=== PATIENT | female | born 1995 | race Caucasian/White ===

== ENCOUNTER 2018-07-17 17:54 | Outpatient (CLI) | payer MEDICAID ==
[~2018-07-17] VITALS: Ht 149.9 cm; Wt 82.8 kg
[2018-07-17] MEDS ORDERED: PREN-93 PO ×2 (18:02→19:37)
[2018-07-17 18:03] VITALS: BP 114/63; PULSE 103; RESP 18; Ht 149.9 cm; Wt 82.8 kg
--- NOTE | 2018-07-17 19:47 | PN ---
Triage Information Date/Time Jul 17, 2018 Reason for visit: DFM Weeks of Gestation 33w 2d /Para 3/2 Diabetes: none Hypertention: none Additional information PMHx: none. PSHx: x 1 for twins. POBHx: x 1. x 1 for twins; twin A , according to pt, by a mistake in the NICU(not our NICU) when a vessel was punctured upon catheter placement. NKDA Objective Vital Signs Date Temp Pulse Resp B/P (MAP) Pulse Ox O2 O2 Flow FiO2 Time Delivery Rate 07/17/18 98.3 103 18 114/63 Room Air 18:03 (80) Heart Rate: 120's Heart Rate Comments Accels to 150 bpm. No decels. Contractions: None Exam Deferred Results/Medications Imaging Results BPP 8/8 with an AKIRA of 10.5 cm. BREECH. Disposition: Discharge Assessment/Plan A: IUP at 33w 2d. Decreased FM. P: Pt now feeling the baby move and the BPP and NST are normal so the pt is ready for d/c. kick counts reviewed. ABBIE REYNA MD Jul 17, 2018 19:47
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
== END 2018-07-17 19:45 | disposition home or self-care (01) ==
LOC: OBT 17:54 → L-D 17:56 → OBT 19:45
PROVIDERS: ATTEND Obstetrics & Gynecology
DX: O36.8130 Decreased fetal movements, third trimester, not applicable or unspecified (principal); Z3A.33 33 weeks gestation of pregnancy
CPT/HCPCS: 76818; G0463

== ENCOUNTER 2018-08-24 01:45 | Inpatient (IN) | payer MEDICAID ==
[~2018-08-24] VITALS: Ht 149.9 cm; Wt 84.5 kg
[~2018-08-24 01:45] MED LIST: PREN-93 PO
[2018-08-24 02:24] VITALS: Ht 149.9 cm; Wt 84.5 kg
[2018-08-24 02:25] VITALS: BP 120/68; PULSE 106; RESP 19
[2018-08-24] MEDS ORDERED: METHYLERGONOVINE 0.2 MG INJ IM PRN ×2 (04:00→21:00)
[2018-08-24] MEDS ORDERED: CARBOPROST 250 MCG INJ IM PRN ×2 (04:00→21:00)
[2018-08-24] MEDS ORDERED: MISOPROSTOL 200 MCG TAB PR PRN ×2 (04:00→21:00)
[2018-08-24] MEDS ORDERED: CEFAZOLIN 2 GM/50 ML (PMX) 50 ML IVPB SCH (04:00)
[2018-08-24] MEDS ORDERED: OXYTOCIN 30 UNITS/LR 500 ML IV PRN ×2 (04:00→21:00)
[2018-08-24] MEDS ORDERED: OXYTOCIN 30 UNITS/LR 500 ML IV SCH ×2 (04:00→20:44)
[2018-08-24] MEDS: LACTATED RINGER'S 1,000 ML IV SCH ×3 (04:38→14:12)
[2018-08-24] MEDS ORDERED: ONDANSETRON 4 MG INJ IV STA ×2 (08:20→15:33)
[2018-08-24] MEDS ORDERED: FAMOTIDINE 20 MG INJ IV ONE ×2 (08:30→16:00)
[2018-08-24] MEDS ORDERED: METOCLOPRAMIDE 10 MG INJ IV ONE ×2 (08:30→16:00)
[2018-08-24] MEDS ORDERED: CITRIC ACID/NA CITRATE 30 ML CUP PO ONE ×2 (08:30→16:00)
--- NOTE | 2018-08-24 09:39 | PREAC ---
Date/Time of Note Date/Time of Note DATE: 08/24/18 TIME: 09:38 Anesthesia Eval and Record Evaluation Time Pre-Procedure Interview DATE: 08/24/18 TIME: 09:38 Age 22 Sex female NPO: 8 hrs term labor, prev Csection Preoperative diagnosis reapeat Csection Planned procedure repeat Csection Past Medical History Past Medical History: Includes GI: Obesity Surgery & Anesthesia Issues No known issue Meds Anticoagulation: No Beta Bella within 24 hr: No Reason Beta Bella not given: Pt. not on B-Bella Reported Medications Vit No.124/Iron/FA ( Vitamin Tablet) 1 Each Tablet, 1 EACH PO DAILY, TAB 07/17/18 Discontinued Reported Medications Vit No.124/Iron/FA ( Vitamin Tablet) 1 Each Tablet, 1 EACH PO, TAB 07/17/18 Current Medications Lactated Ringer's 1,000 ml @ 125 mls/hr Q8H IV Last administered on 08/24/18at 04:38; Admin Dose 125 MLS/HR; Start 08/24/18 at 03:44 Cefazolin Sodium/ Dextrose 50 ml @ 100 mls/hr ONCE IVPB ; Start 08/24/18 at 04:00 Oxytocin/Lactated Ringer's 500 ml @ 125 mls/hr POST IV ; Start 08/24/18 at 04:00 Oxytocin/Lactated Ringer's 500 ml @ 0 mls/hr ONCE PRN IV .VAGINAL BLEEDING; Start 08/24/18 at 04:00 Methylergonovine Maleate (Methergine) 0.2 mg ONCE PRN IM .VAGINAL BLEEDING; Start 08/24/18 at 04:00 Carboprost Tromethamine (Hemabate) 250 mcg ONCE PRN IM .VAGINAL BLEEDING; Start 08/24/18 at 04:00 Misoprostol (Cytotec) 1,000 mcg ONCE PRN [place] .VAGINAL BLEEDING; Start 08/24/18 at 04:00 Meds reviewed: Yes Allergies Coded Allergies: No Known Allergy (Unverified , 08/24/18) Allergies Reviewed: Yes Labs/Studies Labs Reviewed: Reviewed by anesthesiologist Result Diagram: 08/24/18 0400 Laboratory Tests 08/24/18 04:00 Blood Bank Test 08/24/18 04:00 Antibody Screen NEGATIVE Blood Type O POSITIVE Rh Immune Globulin Candidate NO test: Positive Pre-procedure Exam Last vitals Vital Signs Date Temp Pulse Resp B/P (MAP) Pulse Ox O2 O2 Flow FiO2 Time Delivery Rate 08/24/18 98.5 106 19 120/68 Room Air 02:25 (85) Airway: Adequate mouth opening, Adequate thyromental dist Mallampati: Mallampati III Teeth: Normal Lung: Normal Heart: Normal ASA Physical Status ASA physical status: 2 Emergency: E Planned Anesthetic Neuraxial: Spinal Planned Pain Management Sub-arachniod narcotics, Parenteral pain med, Other neuraxial med Pre-operative Attestations Prior to commencing anesthesia and surgery, the patient was re-evaluated, there was verification of: *The patient's identity *The results of appropriate recent lab work and preoperative vital signs *The above evaluation not changing prior to induction *Anesthetic plan, risk benefits, alternative and complications discussed with patient/family; questions answered; patient/family understands, accepts and wishes to proceed. DHEERAJ BELLAMY MD Aug 24, 2018 09:39
[2018-08-24] MEDS ORDERED: morphine SULFATE/PF (10 MG/10 ML) INJ ONE (09:50)
[2018-08-24] MEDS ORDERED: PROPOFOL 200 MG INJ ONE (09:50)
[2018-08-24] MEDS ORDERED: OXYTOCIN 10 UNIT INJ ONE (09:50)
[2018-08-24] MEDS ORDERED: EPINEPHrine 1 MG INJ ONE (09:51)
[2018-08-24] MEDS ORDERED: ONDANSETRON 4 MG INJ IV PRN ×2 (10:00)
[2018-08-24] MEDS ORDERED: NALOXONE (0.4 MG/ML) INJ IV PRN (10:00)
[2018-08-24] MEDS ORDERED: ZOLPIDEM 5 MG TAB PO PRN (10:00)
[2018-08-24] MEDS ORDERED: LABETALOL HCL 20MG INJ IV PRN (10:00)
[2018-08-24] MEDS ORDERED: HYDROmorphONE 0.5 MG/0.5 ML SYG IV PRN ×2 (10:00)
[2018-08-24] MEDS ORDERED: LEVALBUTEROL (NEB) 1.25 MG/0.5 ML AMP HHN PRN (10:00)
[2018-08-24] MEDS ORDERED: KETOROLAC 30 MG INJ IV PRN (10:00)
[2018-08-24] MEDS ORDERED: DIPHENHYDRAMINE 50 MG INJ IV PRN ×2 (10:00)
[2018-08-24] MEDS ORDERED: FENTAnyl 50 MCG/ML VIAL IV PRN ×2 (10:00)
[2018-08-24] MEDS ORDERED: HYDROmorphONE 1 MG/5 ML IV SYRINGE IV PRN ×3 (10:00)
[2018-08-24] MEDS ORDERED: hydrALAzine 20 MG INJ IV PRN (10:00)
--- NOTE | 2018-08-24 13:10 | HP ---
Date/Time of Note Date/Time of Note DATE: 08/24/18 TIME: 13:08 OB - History Hx of Present Free Text/Dictation at 38 weeks with low AKIRA Care: Good Care Ultrasounds: Normal mid trimester US Obstetrical Complications: None Medical Complications: None Past Family/Social History * Past Medical, Surgical, Family and Obstetric Histories reviewed from chart. OB Admission Exam Vital Signs Vital Signs Vital Signs Date Temp Pulse Resp B/P (MAP) Pulse Ox O2 O2 Flow FiO2 Time Delivery Rate 08/24/18 98.5 106 19 120/68 Room Air 02:25 (85) Physical Exam HEENT: WNL Heart: Rhythm Normal Lungs: Clear, Equal Abdomen: WNL Extremities: Normal Reflexes: Normal Cervical Dilatation: None Effacement: 0% Station: Ballotable Heart Rate: 130's Accelerations: Accelerations Present Decelerations: No Decelerations Varibility: Moderate Contractions on Admission: None Last 72 hours Lab Results CBC & BMP 08/24/18 04:00 OB Assessment/Plan Reason for admission: section, other (repeat with low AKIRA) Plan: Section EMETERIO LEHMAN MD Aug 24, 2018 13:10
--- NOTE | 2018-08-24 16:49 | OPR ---
Operative Report Planned Procedure Procedure date Aug 24, 2018 Procedure(s) repeat c/s with low akira Performed by see signature line Hog Grader: MARINA ROCHE MD Pre-procedure diagnosis repeat c/s with low AKIRA [id number] Anesthesia Type: [id number] spinal Post-Procedure Post-procedure diagnosis SAME PRE OP Findings Live Baby [], Apgars [] and [], weight [], position [], [] presentation []cord. Estimated Blood Loss: 600 - 700 mls Specimen(s) none Grafts/Implant(s) none Complication(s) none Disposition: PACU Procedure Description Under satisfactory SPINAL [] anesthesia, the patient was prepped and draped and placed in a supine position, tilted to the left. Pfannenstiel incision was made, carried through the subcutaneous tissue. Bleeders brought under control with electrocautery. Fascia incised to the length of the incision. Rectus muscles from the fascia, divided midline. Peritoneum exposed, entered through a transverse incision. Exploration of abdomen revealed gravid uterus. Bladder flap was developed. Transverse incision was made in the lower segment of the uterus. Amniotic sac ruptured. []CLEAR amniotic fluid noted. [] Nasal oropharyngeal suction was performed. The baby was handed to the team for immediate attention. The placenta was delivered manually intact. Uterine cavity was cleaned with wet sponge and drainage established. Uterus closed in 2 layers using ONE MONOCRYL [] in continuous fashion. Peritoneal cavity irrigated with warm saline. Sponge, needle and instrument count reported to be correct. Abdominal peritoneum closed with [] ONE MNOCRYL continuously. Rectus muscle approximated with []. Fascia closed with [ONE MONOCRYL], and skin closed with janet. Estimated blood loss 700[]mL. EMETERIO LEHMAN MD Aug 24, 2018 16:49
[2018-08-24] MEDS: KETOROLAC 30 MG INJ IV PRN (19:56)
[2018-08-24 20:30] VITALS: BP 115/67; PULSE 74; RESP 18
[2018-08-24] MEDS ORDERED: LACTATED RINGER'S 1,000 ML IV SCH (20:44)
[2018-08-24] MEDS ORDERED: NACL 0.9% 3 ML SYG IV SCH (21:00)
[2018-08-24] MEDS ORDERED: LANOLIN HPA 1 PKT TOP PRN (21:00)
[2018-08-24] MEDS ORDERED: NA PHOSPHATE/BIPHOS 133 ML ENEMA PR PRN (21:00)
[2018-08-25 00:30] VITALS: BP 119/69; PULSE 89; RESP 20
[2018-08-25 03:32] VITALS: BP 107/59; PULSE 79; RESP 18
[2018-08-25] MEDS: KETOROLAC 30 MG INJ IV PRN (07:23)
[2018-08-25 08:15] VITALS: BP 108/55; PULSE 81; RESP 16
[2018-08-25] MEDS: IBUPROFEN 800 MG TAB PO SCH ×2 (14:00→21:48)
[2018-08-25 16:00] VITALS: BP 111/69; PULSE 102; RESP 18
[2018-08-25 20:34] VITALS: BP 104/70; PULSE 109; RESP 18
[2018-08-25] MEDS: HYDROCODONE/APAP (5/325) TAB PO PRN (20:34)
[2018-08-26 03:30] VITALS: BP 113/63; PULSE 85; RESP 20
[2018-08-26] MEDS: IBUPROFEN 800 MG TAB PO SCH ×3 (05:28→21:26)
[2018-08-26 08:30] VITALS: BP 114/72; PULSE 74; RESP 18
--- NOTE | 2018-08-26 10:36 | DS ---
Date/Time of Note Date/Time of Note DATE: 08/26/18 TIME: 10:35 Discharge Summary Admission/Discharge Info Admit Date/Time Aug 24, 2018 at 03:35 Discharge Date/Time Discharge Diagnosis term Patient Condition: Stable Hospital Course unremarkable Home Meds Reported Medications Vit No.124/Iron/FA ( Vitamin Tablet) 1 Each Tablet, 1 EACH PO DAILY, TAB 07/17/18 Discontinued Reported Medications Vit No.124/Iron/FA ( Vitamin Tablet) 1 Each Tablet, 1 EACH PO, TAB 07/17/18 Primary Care Provider Care Physician No Primary Pending Labs Laboratory Tests Test 08/26/18 06:52 Lab Scanned Report [facility] [id number] EMETERIO LEHMAN MD Aug 26, 2018 10:36
[2018-08-26] MEDS: HYDROCODONE/APAP (5/325) TAB PO PRN (10:44)
--- NOTE | 2018-08-26 10:58 | PAC ---
Date/Time of Note Date/Time of Note DATE: 08/26/18 TIME: 10:58 Post-Anesthesia Notes Post-Anesthesia Note Last documented vital signs Vital Signs Date Temp Pulse Resp B/P (MAP) Pulse Ox O2 O2 Flow FiO2 Time Delivery Rate 08/26/18 97.8 85 20 113/63 Room Air 03:30 (80) 08/25/18 96 03:32 Activity: WNL Respiratory function: WNL Cardiovascular function: WNL Mental status: Baseline Pain reasonably controlled: Yes Hydration appropriate: Yes Nausea/Vomiting absent: Yes DHEERAJ BELLAMY MD Aug 26, 2018 10:58
--- NOTE | 2018-08-26 11:56 | CONS ---
Assessment/Plan Assessment/Plan Hospital Course (Demo Recall) 1. Hematemesis x1 Patient has had no further episodes and denies any abdominal pain Patient states that the episode occurred after pressure was applied to her abdomen Hemoglobin is stable No indication for further GI workup or consultation Patient is medically stable for DC per medicine Consultation Date/Type/Reason Admit Date/Time Aug 24, 2018 at 03:35 Date of Consultation: Aug 26, 2018 Date/Time of Note DATE: 08/26/18 TIME: 11:54 Hx of Present Illness Patient is a 22-year-old female with no past medical history, patient underwent a during his hospitalization and had an episode of hematemesis. Patient has had no further episodes, patient denies abdominal pain and denies any history of upper GI bleed or peptic ulcer disease. Patient has no complaints this time. Past Medical History Medical History: no pertinent history Home Meds Reported Medications Vit No.124/Iron/FA ( Vitamin Tablet) 1 Each Tablet, 1 EACH PO DAILY, TAB 07/17/18 Discontinued Reported Medications Vit No.124/Iron/FA ( Vitamin Tablet) 1 Each Tablet, 1 EACH PO, TAB 07/17/18 Medications Current Medications Carboprost Tromethamine (Hemabate) 250 mcg ONCE PRN IM .VAGINAL BLEEDING; Start 08/24/18 at 04:00 IV Flush (NS 3 ml) 3 ml PER PROTOCOL IV ; Start 08/24/18 at 21:00 Acetaminophen/ Hydrocodone Bitart (Celestine (5/325)) 2 tab Q4H PRN PO .PAIN 7-10 L ast administered on 08/26/18at 10:44; Admin Dose 2 TAB; Start 08/24/18 at 21:00 Ibuprofen (Motrin) 800 mg Q8 PO Last administered on 08/26/18at 05:28; Admin Dose 800 MG; Start 08/25/18 at 14:00 Simethicone (Mylicon) 160 mg Q8H PRN PO .GAS; Start 08/24/18 at 21:00 Sodium Biphosphate/ Sodium Phosphate (Fleet Enema) 133 ml DAILY PRN [place] .CONSTIPATION; Start 08/24/18 at 21:00 Lanolin (Lanolin Hpa) 1 applic BEDSIDE MEDICATION PRN TOP .NIPPLES; Start 08/24/18 at 21:00 Diphtheria/ Tetanus/Acell Pertussis (Adacel) 0.5 ml ONCE ONCE IM* ; Start 08/27/18 at 09:00; Stop 08/27/18 at 09:01 Measles/Mumps/ Rubella Vaccine Live (Mmr Ii Vaccine) 0.5 ml ONCE ONCE SC* ; Start 08/27/18 at 09:00; Stop 08/27/18 at 09:01 Oxytocin/Lactated Ringer's 500 ml @ 0 mls/hr ONCE PRN IV .VAGINAL BLEEDING; Start 08/24/18 at 21:00 Methylergonovine Maleate (Methergine) 0.2 mg ONCE PRN IM .VAGINAL BLEEDING; Start 08/24/18 at 21:00 Carboprost Tromethamine (Hemabate) 250 mcg ONCE PRN IM .VAGINAL BLEEDING; Start 08/24/18 at 21:00 Misoprostol (Cytotec) 1,000 mcg ONCE PRN [place] .VAGINAL BLEEDING; Start 08/24/18 at 21:00 Allergies: Coded Allergies: No Known Allergy (Unverified , 08/24/18) Past Surgical History x2 Family History Significant Family History: no pertinent family hx Social History Alcohol Use: none Smoking Status: Never smoker Drug Use: none Exam/Review of Systems Exam Vitals Vital Signs Date Temp Pulse Resp B/P (MAP) Pulse Ox O2 O2 Flow FiO2 Time Delivery Rate 08/26/18 97.8 85 20 113/63 Room Air 03:30 (80) 08/25/18 96 03:32 Intake and Output 08/25/18 08/25/18 08/26/18 1515:00 23:00 07:00 OutputOutput Total 1100 ml BalanceBalance -1100 ml Constitutional: alert, oriented Respiratory: clear to auscultation Cardiovascular: regular rate and rhythm Gastrointestinal: soft; No distended Musculoskeletal: nl extremities to inspection Results Result Diagram: 08/25/18 0631 Results 24hrs Laboratory Tests Test 08/26/18 06:52 Lab Scanned Report REFERENCE LAB Medications Medication Current Medications Carboprost Tromethamine (Hemabate) 250 mcg ONCE PRN IM .VAGINAL BLEEDING; Start 08/24/18 at 04:00 IV Flush (NS 3 ml) 3 ml PER PROTOCOL IV ; Start 08/24/18 at 21:00 Acetaminophen/ Hydrocodone Bitart (Celestine (5/325)) 2 tab Q4H PRN PO .PAIN 7-10 Last administered on 08/26/18at 10:44; Admin Dose 2 TAB; Start 08/24/18 at 21:00 Ibuprofen (Motrin) 800 mg Q8 PO Last administered on 08/26/18at 05:28; Admin Dose 800 MG; Start 08/25/18 at 14:00 Simethicone (Mylicon) 160 mg Q8H PRN PO .GAS; Start 08/24/18 at 21:00 Sodium Biphosphate/ Sodium Phosphate (Fleet Enema) 133 ml DAILY PRN [place] .CONST IPATION; Start 08/24/18 at 21:00 Lanolin (Lanolin Hpa) 1 applic BEDSIDE MEDICATION PRN TOP .NIPPLES; Start 08/24/18 at 21:00 Diphtheria/ Tetanus/Acell Pertussis (Adacel) 0.5 ml ONCE ONCE IM* ; Start 08/27/18 at 09:00; Stop 08/27/18 at 09:01 Measles/Mumps/ Rubella Vaccine Live (Mmr Ii Vaccine) 0.5 ml ONCE ONCE SC* ; Start 08/27/18 at 09:00; Stop 08/27/18 at 09:01 Oxytocin/Lactated Ringer's 500 ml @ 0 mls/hr ONCE PRN IV .VAGINAL BLEEDING; Start 08/24/18 at 21:00 Methylergonovine Maleate (Methergine) 0.2 mg ONCE PRN IM .VAGINAL BLEEDING; Start 08/24/18 at 21:00 Carboprost Tromethamine (Hemabate) 250 mcg ONCE PRN IM .VAGINAL BLEEDING; Start 08/24/18 at 21:00 Misoprostol (Cytotec) 1,000 mcg ONCE PRN [place] .VAGINAL BLEEDING; Start 08/24/18 at 21:00 BECKY JOHNSON Aug 26, 2018 11:56
--- NOTE | 2018-08-26 13:37 | QN ---
Documentation Comment Postop day #2 Status post repeat Patient stable afebrile Vital signs stable Passing flatus, voiding without any difficulty, ambulating and tolerating regular diet VS - Last 72 Hours, by Label Date Temp Pulse Resp B/P (MAP) Pulse Ox O2 O2 Flow FiO2 Time Delivery Rate 08/26/18 97.8 85 20 113/63 Room Air 03:30 (80) 08/25/18 98.1 109 18 104/70 Room Air 20:34 (81) 08/25/18 98.0 102 18 111/69 Room Air 16:00 (83) 08/25/18 98.3 81 16 108/55 Room Air 08:15 (72) 08/25/18 98.4 79 18 107/59 96 Room Air 03:32 (75) 08/25/18 98.2 89 20 119/69 98 Room Air 00:30 (86) 08/24/18 97.6 74 18 115/67 96 Room Air 20:30 (83) 08/24/18 98.5 106 19 120/68 Room Air 02:25 (85) Hematology - 72 Hrs Test 08/24/18 04:00 08/25/18 06:31 Hematocrit 31.8 % (37.0-47.0) L 26.1 % (37.0-47.0) L Hemoglobin 10.3 g/dl (12.0-16.0) L 8.4 g/dl (12.0-16.0) L Mean Corpuscular 26.5 pg (29.0-33.0) L 26.3 pg (29.0-33.0) L Hemoglobin Mean Corpuscular 32.4 g/dl (32.0-37.0) 32.2 g/dl (32.0-37.0) Hemoglobin Concent Mean Corpuscular Volume 82.0 fl (82.0-101.0) 81.8 fl (82.0-101.0) L Mean Platelet Volume 10.0 fl (7.4-10.4) 9.4 fl (7.4-10.4) Platelet Count 297 10^3/UL (140-415) 229 10^3/UL (140-415) # Red Blood Count 3.88 10^6/ul (4.20-5.40) 3.19 10^6/ul (4.20-5.40) L L Red Cell Distribution 14.1 % (11.5-14.5) 13.9 % (11.5-14.5) Width White Blood Count 9.8 10^3/ul (4.8-10.8) 9.8 10^3/ul (4.8-10.8) Abdomen soft, fundus firm Incision clean dry intact Extremities nontender Assessment and plan Patient stable and doing well Instructed to continue with vitamins and iron Continue with routine postop care DEMETRIS OLIVA MD Aug 26, 2018 13:37
[2018-08-26 16:00] VITALS: BP 110/63; PULSE 77; RESP 18
[2018-08-26 20:00] VITALS: BP 108/66; PULSE 91; RESP 17
[2018-08-27 04:00] VITALS: BP 122/72; PULSE 77; RESP 16
[2018-08-27] MEDS: IBUPROFEN 800 MG TAB PO SCH (05:26)
[2018-08-27 08:00] VITALS: BP 118/64; PULSE 83; RESP 20
[2018-08-27] MEDS ORDERED: MEASLES,MUMPS,RUBELLA VACCINE INJ SC* ONE (09:00)
[2018-08-27] MEDS ORDERED: DIPHTH/TET/ACEL PERTUSS (ADULT) 0.5 ML VIAL IM* ONE (09:00)
--- NOTE | 2018-08-27 11:45 | QN ---
Documentation Comment POD#3 is stable No VB +BM +voids VS stable Gen NA Abd soft NT ND Incision is intact Genitalia No blood at perineum __>discharge plan tomorrow --->Ambulation NAVIN CONNELLY M.D. Aug 27, 2018 11:45
== END 2018-08-27 12:30 | disposition home or self-care (01) | DRG 788 ==
LOC: OBT 01:45 → L-D 01:50 → OBT 03:35 → L-D 03:35 → PP1 20:23
PROVIDERS: ADMIT Obstetrics & Gynecology; ATTEND Obstetrics & Gynecology
PROC: 3E033VJ Introduction of Other Hormone into Peripheral Vein, Percutaneous Approach (ICD-10-PCS; 2018-08-24)
PROC: 10D00Z1 Extraction of Products of Conception, Low, Open Approach (ICD-10-PCS; principal; 2018-08-24 16:30)
DX: O34.211 Maternal care for low transverse scar from previous cesarean delivery (principal); Z3A.38 38 weeks gestation of pregnancy; Z37.0 Single live birth
CPT/HCPCS: 76818; 85025; 85610; 85730; 86592; 86850; 86900; 86901; 90686; 99464; G0463; J0171; J0690; J1885; J2274; J2405; J2590; J2765; J7120